=== PATIENT | male | born 1980 | race African-American/Black ===

== ENCOUNTER 2017-02-02 08:54 | Emergency (ER) | payer BC ==
--- NOTE | 2017-02-02 09:03 | UC ---
Throat Pain/Nasal Yobany HPI - HPI Summary HPI Summary: The patient comes in today for: 1. Sore throat, fatigue: Onset: 3 days. Palliative/provocative: Advil cold and sinus helped. Quality: Sore Region: Throat Severity: 11/11 Time: Constant. 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 Mononucleosis: He denies having this in the past. Rhinitis: None. Cough: present, but non-productive. Fevers: No temperatures taken at home. * - History of Current Complaint Stated Complaint: FATIGUED,SORE THROAT Time Seen by Provider: 02/02/17 08:57 Hx Obtained From: Patient - Allergies/Home Medications Allergies/Adverse Reactions: Allergies Allergy/AdvReac Type Severity Reaction Status Date / Time No Known Allergies Allergy Verified 02/02/17 09:26 Home Medications: Home Medications Advil Cold And Sinus 2 tab PO Q6H PRN 02/02/17 [History] Multivitamins/Minerals TAB* [Thera M Plus TAB*] 1 tab PO DAILY 02/02/17 [ History Confirmed 02/02/17] PMH/Surg Hx/FS Hx/Imm Hx Previously Healthy: Yes - Surgical History Surgical History: None - Family History Known Family History: Positive: Diabetes Negative: Hypertension - Social History Occupation: Employed Full-time Alcohol Use: Weekly Substance Use Type: None Smoking Status (MU): Former Smoker Have You Smoked in the Last Year: Yes When Did the Patient Quit Smoking/Using Tobacco: 2013 - Immunization History Most Recent Influenza Vaccination: No Review of Systems Constitutional: Negative Skin: Negative Eyes: Negative ENT: Sore Throat Respiratory: Cough Cardiovascular: Negative Gastrointestinal: Negative Genitourinary: Negative All Other Systems Reviewed And Are Negative: Yes Physical Exam Triage Information Reviewed: Yes Appearance: Well-Appearing, No Pain Distress, Well-Nourished Vital Signs Reviewed: Yes Eyes: Positive: Conjunctiva Clear. Negative: Discharge ENT: Positive: Hearing grossly normal, TM bulging, TM dull, TM red. Negative: Pharyngeal erythema, Nasal congestion, Nasal drainage, Tonsillar swelling, Tonsillar exudate Dental: Negative: Gross Decay/Caries @, Dental Fracture @ Neck: Positive: Supple, Nontender, No Lymphadenopathy. Negative: Nuchal Rigidity Respiratory: Positive: Lungs clear, No respiratory distress, No accessory muscle use. Negative: Crackles, Rhonchi Cardiovascular: Positive: RRR, No Murmur Abdomen Description: Positive: Nontender, No Organomegaly, Soft. Negative: Distended, Guarding Musculoskeletal: Positive: Strength Intact, ROM Intact Neurological: Positive: Alert, Muscle Tone Normal Psychological: Positive: Age Appropriate Behavior, Consolable Skin: Negative: rashes, breakdown Diagnostics - Laboratory Diagnostic Studies Completed/Ordered: Strep test: (-) Throat Pain/Nasal Course/Dx - Course Assessment/Plan: Patient told of negative strep test, and diagnostic and treatment options. At this time, he wants mononucleosis testing. - Differential Dx/Diagnosis Provider Diagnoses: Fatigue. PHaryngitis (viral) Discharge - Discharge Plan Condition: Stable Disposition: HOME Patient Education Materials: Fatigue (ED) Forms: *Work Release Referrals: No Primary Care Phys,NOPCP [Primary Care Provider] - 1 Week ( Please see your primary care provider in about 1-2 weeks. If you don't have a primary care provider, please reference the included sheet of local provider. If you get worse, please be seen sooner.)
[2017-02-02 09:26] VITALS: BP 105/65
[2017-02-02 13:24] LABS: EBV Response YES
[2017-02-02 14:11] LABS: Mono Internal Control QC Line Present
--- NOTE | 2017-02-03 08:16 | ED ---
Progress - Progress Note Progress Note: MONOSPOT (-), EBV HAS BEEN ORDERED PER LAB SHEET. DIONNE Course/Dx - Diagnoses Provider Diagnoses: Pharyngitis
[2017-02-05 11:56] LABS: EBV Capsid Ag IgG Ab Positive (Negative); EBV Capsid Ag IgM Ab Negative (Negative)
== END 2017-02-02 10:00 | disposition home or self-care (01) ==
LOC: UCCORT 08:54
DX: R53.83 Other fatigue (principal); J02.8 Acute pharyngitis due to other specified organisms; B97.89 Other viral agents as the cause of diseases classified elsewhere
CPT/HCPCS: 36415; 86308; 86664; 86665; 87651; 99211; G0463